=== PATIENT | female | born 1985 | race Caucasian/White ===

== ENCOUNTER 2018-04-14 23:30 | Emergency (ER) | payer MEDICAID ==
[~2018-04-14] VITALS: Ht 154.9 cm; Wt 90.7 kg
[2018-04-14 23:36] VITALS: BP 144/90
[2018-04-15] MEDS ORDERED: KETOROLAC 30 MG/ML VIAL ONE (02:21)
[2018-04-15] MEDS ORDERED: KETOROLAC 30 MG/ML VIAL IM ONE (02:25)
[2018-04-15 02:59] LABS: APPEARANCE,URINE CLEAR (CLEAR); BILIRUBIN,URINE NEGATIVE (NEGATIVE); BLOOD, URINE 3+ (NEGATIVE); COLOR,URINE YELLOW (YELLOW); LEUKOCYTE ESTERASE ,URINE TRACE (NEGATIVE); NITRITE, URINE NEGATIVE (NEGATIVE); UGLUCOSE NEGATIVE (NEGATIVE)
[2018-04-15 03:16] VITALS: BP 144/90
[2018-04-15 03:20] LABS: CALCIUM OXALATE CRYSTALS,UR 0-10 /HPF (None Seen); RBC,URINE 3-10 (FEW) /HPF (0-5); WBC,URINE 0-5 (RARE) /HPF (0-5)
== END 2018-04-15 03:15 | disposition home or self-care (01) ==
LOC: MED 23:30
DX: G44.209 Tension-type headache, unspecified, not intractable (principal); E11.9 Type 2 diabetes mellitus without complications; I10 Essential (primary) hypertension
CPT/HCPCS: 81001; 82948; 96372; 99283; J1885; 99284

== ENCOUNTER 2020-11-23 13:56 | Emergency (ER) | payer MEDICAID ==
[~2020-11-23] VITALS: Ht 154.9 cm; Wt 82.1 kg
[2020-11-23 14:15] VITALS: BP 104/58
--- NOTE | 2020-11-23 14:21 | NUR ---
35 Y/O FEMALE BIB SELF C/O CHEST PAIN WITH HEADACHE X 3 DAYS. PT DESCRIBES CHEST PAIN 6/10 THAT PULSING, NONRADIATING IN THE CENTER OF CHEST. PT TOOK TYLENOL WITH NO RELIEF. PT DENIES INJURY/TRAUMA/EATING SPICY FOODS. PT STATES SHE HAS BEEN NAUSEOUS WITH NO VOMITING. DENIES SOB/FEVER/CHILLS/DIARRHEA. PT IS A/O X4 WITH EVEN AND UNLABORED RESPIRATIONS. PT LAYING IN BED WITH BED IN LOWEST POSITION, BRAKES LOCKED, X1 SIDE RAIL UP. PT PLACED ON [employer]LEMENT[employer]IST PAYROLL. HX DENIES NKA
--- NOTE | 2020-11-23 14:27 | NUR ---
MARIA ESTHER DUNCAN AT BEDSIDE
--- NOTE | 2020-11-23 14:31 | NUR ---
RAD AT BEDSIDE
[2020-11-23] MEDS ORDERED: KETOROLAC 60 MG/2 ML VIAL IM ONE (14:35)
--- NOTE | 2020-11-23 14:38 | NUR ---
PT AMBULATED TO RESTROOM FOR URINE SAMPLE
--- NOTE | 2020-11-23 15:26 | NUR ---
PT RESTING IN BED WITH EVEN AND UNLABORED RESPIRATIONS. PT DENIES CHEST PAIN AT THIS TIME. WILL CONTINUE TO MONITOR
[2020-11-23] MEDS ORDERED: NAPR-54 PO (15:35)
[2020-11-23 15:56] VITALS: BP 104/58
== END 2020-11-23 15:56 | disposition home or self-care (01) ==
LOC: MED 13:56
DX: R51.9 Headache, unspecified (principal); R07.9 Chest pain, unspecified; I10 Essential (primary) hypertension; E11.9 Type 2 diabetes mellitus without complications
CPT/HCPCS: 71045; 81002; 81025; 93005; 96372; 99283; J1885

== ENCOUNTER 2020-11-29 15:14 | Emergency (ER) | payer MEDICAID ==
[~2020-11-29] VITALS: Ht 154.9 cm; Wt 81.6 kg
[~2020-11-29 15:14] MED LIST: NAPR-54 PO
[2020-11-29 15:16] VITALS: BP 144/77
--- NOTE | 2020-11-29 15:19 | NUR ---
LARON. HANDED ON URINE CUP.
--- NOTE | 2020-11-29 15:20 | NUR ---
BIB FAMILY C/O 05/26 [place] X 2 DAYS. LMP 11/13/20.PMH: DENIES. DENIES N/V/D; SKIN IS PINK/WARM/DRY; AAOX4 WITH EVEN AND STEADY GAIT; LUNGS CLEAR BL; HR EVEN AND REGULAR; PT DENIES ANY FEVER, CP, SOB, OR COUGH AT THIS TIME; PATIENT STATES PAIN OF 8/10 AT THIS TIME.
--- NOTE | 2020-11-29 16:18 | NUR ---
PT AMBULATED TO BED 7
--- NOTE | 2020-11-29 16:20 | NUR ---
MARIA ESTHER PADRON AT BEDSIDE
--- NOTE | 2020-11-29 16:22 | NUR ---
35 Y/O FEMALE C/O HEADACHE AND NECK PAIN X 2 DAYS. PT STATES PAIN IS 9/10 THAT IS PULSING/PRESSURE THAT RADIATES FROM HEADACHE TO NECK. PT STATES SHE IS NAUSEOUS WITH NO EPSIDOES OF EMESIS. PT STATES SHE TOOK TYLENOL THIS MORNING WITH NO RELIEF. PT STATES SHE IS SENSITIVE TO LIGHT. PT IS A/O X4 WITH EVEN AND UNLABORED RESPIRATIONS. PT IS LAYING IN BED WITH BED IN LOWEST POSITION, BRAKES LOCKED, X1 SIDERAIL UP. PMH: MARGARITAIES SHAHEEN
[2020-11-29] MEDS ORDERED: KETOROLAC 30 MG/ML VIAL IM ONE (16:25)
[2020-11-29] MEDS ORDERED: IBUP-1842 PO (16:36)
[2020-11-29 17:23] VITALS: BP 144/77
== END 2020-11-29 17:25 | disposition home or self-care (01) ==
LOC: MED 15:14
DX: G44.209 Tension-type headache, unspecified, not intractable (principal); M54.2 Cervicalgia; R11.0 Nausea; R51.9 Headache, unspecified; E11.9 Type 2 diabetes mellitus without complications; I10 Essential (primary) hypertension; Z79.899 Other long term (current) drug therapy
CPT/HCPCS: 81002; 81025; 96372; 99283; J1885

== ENCOUNTER 2020-12-08 16:20 | Emergency (ER) | payer MEDICAID ==
[~2020-12-08] VITALS: Ht 157.5 cm; Wt 77.1 kg
[~2020-12-08 16:20] MED LIST changes: +IBUP-1842 PO
[2020-12-08 16:26] VITALS: BP 132/74
--- NOTE | 2020-12-08 16:48 | NUR ---
35 YEAR OLD FEMALE COMPLAINS OF NONRADIATING CHEST PAIN X 1 WEEK. PT STATES PAIN IS CONTINOUS. PT DENIES SOB. PT STATES SOME NAUSEA, BUT NO VOMITTING OR DIARRHEA. PT AOX4, BREATHING EVEN AND UNLABORED, SKIN WARM AND DRY. BED IN LOWEST POSITION, LOCKED, BED RAIL UPX1. PMH - DENIES ALLERGIES - NKA
[2020-12-08 17:13] LABS: BASOPHILS % (AUTO) 0.5 % (0.0-2.0); EOSINOPHILS # (AUTO) 0.1 K/uL (0-0.4); EOSINOPHILS % (AUTO) 0.7 % (0.0-4.0); HEMATOCRIT 35.7 % (36-48); HEMOGLOBIN 11.6 g/dL (12.0-16.0); LYMPHOCYTES % (AUTO) 21.7 % (20.5-51.1); MEAN CORPUSCULAR HEMOGLOBIN 28 pg (27-31); MEAN CORPUSCULAR HGB CONC 33 g/dL (33-37); MEAN CORPUSCULAR VOLUME 85.5 fL (80-94); MONOCYTES # (AUTO) 0.7 K/uL (0.8-1.0); MONOCYTES % (AUTO) 7.9 % (1.7-9.3); NEUTROPHILS # (AUTO) 6.5 K/uL (1.8-7.7); NEUTROPHILS % (AUTO) 69.2 % (42.2-75.2); PLATELET COUNT (AUTO) 251 K/uL (140-450); RED BLOOD CELL COUNT(AUTO) 4.18 MIL/uL (4.20-5.40); WHITE BLOOD COUNT (AUTO) 9.4 K/uL (4.8-10.8)
[2020-12-08 17:40] LABS: ALBUMIN 3.8 g/dL (3.4-5.0); ANION GAP 10.7 (8-16); CARBON DIOXIDE 29.4 mmol/L (21-32); CREATININE 0.7 mg/dL (0.6-1.3); POTASSIUM 4.1 mmol/L (3.5-5.1); TOTAL BILIRUBIN 0.2 mg/dL (0.0-1.0)
--- NOTE | 2020-12-08 17:45 | NUR ---
pt alert and awake, breathing even and unlabored
[2020-12-08] MEDS ORDERED: ALUMINUM HYD/MAG/SIMETHICONE 30 ML UDC PO ONE (18:30)
[2020-12-08] MEDS ORDERED: KETOROLAC 30 MG/ML VIAL IM ONE (18:30)
[2020-12-08] MEDS ORDERED: FAMOTIDINE 20 MG TAB PO ONE (18:30)
[2020-12-08] MEDS ORDERED: ALUM355S59 PO (18:42)
[2020-12-08] MEDS ORDERED: FAMO-90 PO (18:42)
--- NOTE | 2020-12-08 19:00 | NUR ---
Patient discharged with v/s stable. Written and verbal after care instruction about GERD given and explained. Patient alert, oriented and verbalized understanding of instructions. Ambulatory with steady gait. All questions addressed prior to discharge. ID band removed. Patient advised to follow up with PMD. Rx of maalox, pepcid given. Patient educated on indication of medication including possible reaction and side effects. Opportunity to ask questions provided and answered.
[2020-12-08 19:05] VITALS: BP 132/74
== END 2020-12-08 19:05 | disposition home or self-care (01) ==
LOC: MED 16:20
DX: R07.9 Chest pain, unspecified (principal)
CPT/HCPCS: 36415; 71045; 76700; 80053; 81025; 83690; 84484; 85025; 93005; 96372; 99285; J1885

== ENCOUNTER 2021-01-12 23:48 | Emergency (ER) | payer MEDICAID ==
[~2021-01-12] VITALS: Ht 157.5 cm; Wt 81.6 kg
[~2021-01-12 23:48] MED LIST changes: +ALUM355S59 PO; +FAMO-90 PO
[2021-01-12 23:56] VITALS: BP 127/65
--- NOTE | 2021-01-13 00:10 | NUR ---
PT TAKEN TO BED 7
--- NOTE | 2021-01-13 00:13 | NUR ---
35 Y/O FEMALE CAME TO THE ED C/O CHEST PAIN. PT STATES 9/10 TIGHTNESS AND PRESSURE PAIN IN THE CHEST THAT DOES NOT RADIATE TO ANYWHERE ELSE. PT IS A&OX4, GCS15. DENIES ANY NAUSEA/VOMITTING. SKIN IS PINK/WARM/DRY; LUNGS CLEAR BL; HR EVEN AND REGULAR; PT DENIES ANY FEVER, CP, SOB, OR COUGH AT THIS TIME; VSS; PATIENT POSITIONED FOR COMFORT; HOB ELEVATED; BEDRAILS UP X2; BED DOWN. ER MD MADE AWARE OF PT STATUS. NKA PMH: DENIES
--- NOTE | 2021-01-13 00:13 | NUR ---
Dr. Meyer examining patient.
[2021-01-13] MEDS: KETOROLAC 30 MG/ML VIAL IVP ONE (00:26)
--- NOTE | 2021-01-13 00:26 | NUR ---
X-Ray at bedside.
[2021-01-13 00:37] LABS: BASOPHILS % (AUTO) 0.4 % (0.0-2.0); EOSINOPHILS # (AUTO) 0.1 K/uL (0-0.4); EOSINOPHILS % (AUTO) 1.3 % (0.0-4.0); HEMATOCRIT 34.9 % (36-48); HEMOGLOBIN 11.4 g/dL (12.0-16.0); LYMPHOCYTES # (AUTO) 2.8 K/uL (2.5-16.5); LYMPHOCYTES % (AUTO) 33.3 % (20.5-51.1); MEAN CORPUSCULAR HEMOGLOBIN 28 pg (27-31); MEAN CORPUSCULAR HGB CONC 33 g/dL (33-37); MEAN CORPUSCULAR VOLUME 85.9 fL (80-94); MONOCYTES # (AUTO) 0.7 K/uL (0.8-1.0); MONOCYTES % (AUTO) 8.7 % (1.7-9.3); NEUTROPHILS # (AUTO) 4.7 K/uL (1.8-7.7); NEUTROPHILS % (AUTO) 56.3 % (42.2-75.2); PLATELET COUNT (AUTO) 254 K/uL (140-450); RED BLOOD CELL COUNT(AUTO) 4.06 MIL/uL (4.20-5.40); RED CELL DISTRIBUTION WIDTH 14.5 % (11.6-13.7); WHITE BLOOD COUNT (AUTO) 8.4 K/uL (4.8-10.8)
--- NOTE | 2021-01-13 01:48 | NUR ---
Patient discharged with v/s stable. Written and verbal after care instructions given and explained. Patient verbalized understanding. Ambulatory with steady gait. All questions addressed prior to discharge. Advised to follow up with PMD.
[2021-01-13 01:49] VITALS: BP 127/65
[2021-01-13 02:00] LABS: ALBUMIN 3.9 g/dL (3.4-5.0); ANION GAP 10.1 (8-16); CARBON DIOXIDE 28.3 mmol/L (21-32); CREATININE 0.7 mg/dL (0.6-1.3); POTASSIUM 3.4 mmol/L (3.5-5.1); TOTAL BILIRUBIN 0.2 mg/dL (0.0-1.0)
== END 2021-01-13 01:48 | disposition home or self-care (01) ==
LOC: MED 23:48
DX: R07.9 Chest pain, unspecified (principal); I10 Essential (primary) hypertension
CPT/HCPCS: 36415; 71045; 80053; 84484; 84702; 85025; 93005; 96374; 99285; J1885

== ENCOUNTER 2021-03-19 15:19 | Emergency (ER) | payer MEDICAID ==
[~2021-03-19] VITALS: Ht 157.5 cm; Wt 83.5 kg
[2021-03-19 15:24] VITALS: BP 115/68
[2021-03-19 16:17] LABS: BASOPHILS % (AUTO) 0.6 % (0.0-2.0); EOSINOPHILS # (AUTO) 0.1 K/uL (0-0.4); EOSINOPHILS % (AUTO) 1.1 % (0.0-4.0); HEMATOCRIT 33.3 % (36-48); HEMOGLOBIN 11.1 g/dL (12.0-16.0); LYMPHOCYTES # (AUTO) 2.2 K/uL (2.5-16.5); LYMPHOCYTES % (AUTO) 27.9 % (20.5-51.1); MEAN CORPUSCULAR HEMOGLOBIN 29 pg (27-31); MEAN CORPUSCULAR HGB CONC 33 g/dL (33-37); MONOCYTES # (AUTO) 0.6 K/uL (0.8-1.0); MONOCYTES % (AUTO) 7.5 % (1.7-9.3); NEUTROPHILS # (AUTO) 4.9 K/uL (1.8-7.7); NEUTROPHILS % (AUTO) 62.9 % (42.2-75.2); PLATELET COUNT (AUTO) 242 K/uL (140-450); RED BLOOD CELL COUNT(AUTO) 3.83 MIL/uL (4.20-5.40); RED CELL DISTRIBUTION WIDTH 14.4 % (11.6-13.7); WHITE BLOOD COUNT (AUTO) 7.7 K/uL (4.8-10.8)
[2021-03-19] MEDS ORDERED: KETOROLAC 30 MG/ML VIAL IM ONE (16:20)
[2021-03-19 16:37] LABS: PROTHROMBIN TIME 9.9 secs (10.8-13.4)
[2021-03-19 16:38] LABS: ALBUMIN 3.9 g/dL (3.4-5.0); ANION GAP 10.2 (8-16); CARBON DIOXIDE 26.5 mmol/L (21-32); CREATININE 0.7 mg/dL (0.6-1.3); POTASSIUM 3.7 mmol/L (3.5-5.1); TOTAL BILIRUBIN 0.3 mg/dL (0.0-1.0)
[2021-03-19] MEDS ORDERED: NAPR-1704 PO (16:41)
[2021-03-19 16:55] LABS: D-DIMER < 100 ng/ml (0-400)
[2021-03-19 17:13] VITALS: BP 115/68
== END 2021-03-19 17:13 | disposition home or self-care (01) ==
LOC: MED 15:19
DX: R07.9 Chest pain, unspecified (principal); R11.0 Nausea; E11.9 Type 2 diabetes mellitus without complications; I10 Essential (primary) hypertension; Z79.899 Other long term (current) drug therapy
CPT/HCPCS: 36415; 71045; 80053; 81002; 81025; 83880; 84484; 85025; 85379; 85610; 85730; 93005; 96372; 99285; J1885

== ENCOUNTER 2021-04-12 18:03 | Emergency (ER) | payer MEDICAID ==
[~2021-04-12] VITALS: Ht 157.5 cm; Wt 83.0 kg
[~2021-04-12 18:03] MED LIST changes: +NAPR-1704 PO
[2021-04-12 18:20] VITALS: BP 121/75
--- NOTE | 2021-04-12 18:39 | NUR ---
PT TAKEN TO BED 4.
[2021-04-12] MEDS ORDERED: LIDOCAINE MPF 1% 10 MG/ML VIAL INJ ONE (18:50)
[2021-04-12] MEDS ORDERED: BACITRACIN OINT 500 UNITS/GM PKT TP ONE (18:50)
--- NOTE | 2021-04-12 18:50 | NUR ---
PT LAC BEING SOAKED IN WARM WATER WITH BETADINE, LAC TRAY SET UP AT BED SIDE AND PA NOTIFIED.
--- NOTE | 2021-04-12 19:09 | NUR ---
MARIA ESTHER DUNCAN WITH PT
[2021-04-12] MEDS ORDERED: IBUP-2213 PO (19:10)
--- NOTE | 2021-04-12 19:15 | NUR ---
RECEIVED PT IN BED 4. HAS BEEN SEEN BY AND RIGHT 2ND DIGIT SUTURED. BACITRACIN AND DRESSING APPLIED. PT STATES THAT SHE CUT HERSELF ON "BROKEN GLASS'
== END 2021-04-12 19:22 | disposition home or self-care (01) ==
LOC: MED 18:03
DX: S61.210A Laceration without foreign body of right index finger without damage to nail, initial encounter (principal); E11.9 Type 2 diabetes mellitus without complications; I10 Essential (primary) hypertension; Z79.899 Other long term (current) drug therapy; W26.8XXA Contact with other sharp object(s), not elsewhere classified, initial encounter; Y93.89 Activity, other specified; Y92.89 Other specified places as the place of occurrence of the external cause; Y99.8 Other external cause status
CPT/HCPCS: 12001; 99282; J2001

== ENCOUNTER 2021-07-17 08:31 | Emergency (ER) | payer MEDICAID ==
[~2021-07-17] VITALS: Ht 157.5 cm; Wt 83.5 kg
[~2021-07-17 08:31] MED LIST changes: +IBUP-2213 PO
[2021-07-17 08:55] VITALS: BP 143/89
[2021-07-17] MEDS: KETOROLAC 30 MG/ML VIAL IM ONE (09:39)
[2021-07-17 09:45] LABS: BASOPHILS % (AUTO) 0.7 % (0.0-2.0); EOSINOPHILS # (AUTO) 0.1 K/uL (0-0.4); EOSINOPHILS % (AUTO) 1.5 % (0.0-4.0); HEMATOCRIT 36.2 % (36-48); LYMPHOCYTES # (AUTO) 1.7 K/uL (2.5-16.5); LYMPHOCYTES % (AUTO) 29.3 % (20.5-51.1); MEAN CORPUSCULAR HEMOGLOBIN 29 pg (27-31); MEAN CORPUSCULAR HGB CONC 33 g/dL (33-37); MEAN CORPUSCULAR VOLUME 86.6 fL (80-94); MONOCYTES # (AUTO) 0.4 K/uL (0.8-1.0); MONOCYTES % (AUTO) 7.2 % (1.7-9.3); NEUTROPHILS # (AUTO) 3.5 K/uL (1.8-7.7); NEUTROPHILS % (AUTO) 61.3 % (42.2-75.2); PLATELET COUNT (AUTO) 229 K/uL (140-450); RED BLOOD CELL COUNT(AUTO) 4.19 MIL/uL (4.20-5.40); RED CELL DISTRIBUTION WIDTH 13.6 % (11.6-13.7); WHITE BLOOD COUNT (AUTO) 5.7 K/uL (4.8-10.8)
--- NOTE | 2021-07-17 09:56 | NUR ---
Note derrick in EDM - 07/17/21 at 0958 by [email or web address] 36/F BIB SELF WITH C/O LEFT LOWER QUADRANT ABDOMINAL PAIN SINCE YESTERDAY. PATIENT STATES PAIN CAME ON SUDDENLY AND HAS BEEN CONSISTENT AND SHARP. DENIES TAKING ANYTHING AT HOME FOR PAIN, SITE IS NON TENDER TO TOUCH. PATIENT DENIES N/V/D, URINARY SYMPTOMS, CP, SOB, FEVER OR CHILLS.
--- NOTE | 2021-07-17 10:00 | NUR ---
36/F BIB SELF WITH C/O LEFT LOWER QUADRANT ABDOMINAL PAIN SINCE YESTERDAY. PATIENT STATES PAIN CAME ON SUDDENLY AND HAS BEEN CONSISTENT AND SHARP. DENIES TAKING ANYTHING AT HOME FOR PAIN, SITE IS NON TENDER TO TOUCH. PATIENT DENIES N/V/D, URINARY SYMPTOMS, CP, SOB, FEVER OR CHILLS.
[2021-07-17 10:06] LABS: CARBON DIOXIDE 24.8 mmol/L (21-32); CREATININE 0.5 mg/dL (0.6-1.3); POTASSIUM 3.8 mmol/L (3.5-5.1)
--- NOTE | 2021-07-17 11:45 | NUR ---
ULTASOUND AT BEDSIDE
[2021-07-17] MEDS ORDERED: IBUP-2213 PO (12:58)
--- NOTE | 2021-07-17 13:00 | NUR ---
PATIENT APPEARS TO BE RESTING IN BED WITH EYES CLOSED, LIGHTS DIMMED FOR COMFORT. WILL CONTINUE TO MONITOR.
[2021-07-17 13:55] VITALS: BP 99/52
--- NOTE | 2021-07-17 14:07 | NUR ---
Patient discharged with v/s stable. Written and verbal after care instructions given and explained. Patient alert, oriented and verbalized understanding of instructions. Ambulatory with steady gait. All questions addressed prior to discharge. ID band removed. Patient advised to follow up with PMD. Rx of IBU given. Patient educated on indication of medication including possible reaction and side effects. Opportunity to ask questions provided and answered.
[2021-07-17 14:25] LABS: APPEARANCE,URINE SL CLOUDY (CLEAR); BILIRUBIN,URINE 1+ (NEGATIVE); BLOOD, URINE 3+ (NEGATIVE); COLOR,URINE ORANGE (YELLOW); LEUKOCYTE ESTERASE ,URINE NEGATIVE (NEGATIVE); NITRITE, URINE POSITIVE (NEGATIVE); UGLUCOSE NEGATIVE (NEGATIVE)
[2021-07-17 14:36] LABS: RBC,URINE >100 /HPF (0-5); WBC,URINE 0-5 /HPF (0-5)
== END 2021-07-17 14:07 | disposition home or self-care (01) ==
LOC: MED 08:31
DX: R10.9 Unspecified abdominal pain (principal); Z79.1 Long term (current) use of non-steroidal anti-inflammatories (NSAID); Z79.899 Other long term (current) drug therapy
CPT/HCPCS: 36415; 74018; 76770; 80048; 81001; 85025; 87086; 96372; 99285; J1885; Q0092; 81025

== ENCOUNTER 2021-07-23 13:57 | Emergency (ER) | payer MEDICAID ==
[~2021-07-23] VITALS: Ht 157.5 cm; Wt 82.6 kg
[2021-07-23 14:05] VITALS: BP 123/64
[2021-07-23] MEDS ORDERED: diphenhydrAMINE 50 MG/ML VIAL IVP ONE (14:15)
[2021-07-23] MEDS ORDERED: NACL 0.9% 1,000 ML IV ONE (14:15)
[2021-07-23] MEDS ORDERED: KETOROLAC 30 MG/ML VIAL IVP ONE (14:15)
[2021-07-23] MEDS ORDERED: METOCLOPRAMIDE 10 MG/2 ML INJ VIAL IVP ONE (14:15)
--- NOTE | 2021-07-23 15:40 | NUR ---
36/F PRESENTS TO ED WITH C/O HEADACHE SINCE LAST NIGHT. PATIENT STATES PAIN CAME ON WHILE AT REST, REPORTS TAKING TYLENOL WITH NO RELIEF. REPORTS 8/10 THROBBING PAIN THAT IS UNPROVOKED. STATES INTERMITTENT EPISODES OF NAUSEA, DENIES V/D, CP, SOB, FEVER OR CHILLS. PATIENT DENIES BLURRED VISION OR DIZZINESS, ALERT AND ORIENTED X4 ANSWERING QUESTIONS APPROPRIATELY.
[2021-07-23] MEDS ORDERED: ACET-9500 PO (16:03)
[2021-07-23 16:26] VITALS: BP 103/48
--- NOTE | 2021-07-23 16:26 | NUR ---
Patient discharged with v/s stable. Written and verbal after care instructions ABOUT MIGRAINE HEADACHE given and explained. Patient alert, oriented and verbalized understanding of instructions. Ambulatory with steady gait. All questions addressed prior to discharge. ID band removed. Patient advised to follow up with PMD. Rx of EXCEDRIN given. Opportunity to ask questions provided and answered.
--- NOTE | 2021-07-23 16:32 | NUR ---
Note michellenathaly in EDM - 07/23/21 at 1633 by [email or web address] Patient discharged with v/s stable. Written and verbal after care instructions ABOUT MIGRAINE HEADACHE given and explained. Patient alert, oriented and verbalized understanding of instructions. Ambulatory with steady gait. All questions addressed prior to discharge. ID band removed. Patient advised to follow up with PMD. Rx of EXCEDRIN given. Opportunity to ask questions provided and answered.
== END 2021-07-23 16:26 | disposition home or self-care (01) ==
LOC: MED 13:57
DX: G43.909 Migraine, unspecified, not intractable, without status migrainosus (principal); E11.9 Type 2 diabetes mellitus without complications; I10 Essential (primary) hypertension; Z79.899 Other long term (current) drug therapy
CPT/HCPCS: 81002; 81025; 96361; 96374; 96375; 99284; J1200; J1885; J2765; J7030

== ENCOUNTER 2021-08-18 13:11 | Emergency (ER) | payer MEDICAID ==
[~2021-08-18] VITALS: Ht 157.5 cm; Wt 82.1 kg
[~2021-08-18 13:11] MED LIST changes: +ACET-9500 PO
[2021-08-18 13:21] VITALS: BP 150/87
--- NOTE | 2021-08-18 13:50 | NUR ---
PT AMBULATED TO CHAIR A.
--- NOTE | 2021-08-18 14:15 | NUR ---
MARIA ESTHER DUNCAN WITH PT IN C FOR FURTHER EVALUATION.
--- NOTE | 2021-08-18 14:21 | NUR ---
36 Y/O FEMALE C/O ANXIETY X 2 DAYS. PT C/O NAUSEA AND PALPITATIONS. DENIES CP, SOB. PT DENIES ANY TRIGGERS/STRESS. NO MEDS TAKEN. DENIES PMH NKA
[2021-08-18] MEDS ORDERED: LORazepam 0.5 MG TAB PO ONE (14:40)
[2021-08-18] MEDS ORDERED: ATA25 PO (15:34)
== END 2021-08-18 15:37 | disposition home or self-care (01) ==
LOC: MED 13:11
DX: F41.9 Anxiety disorder, unspecified (principal); I10 Essential (primary) hypertension; E11.9 Type 2 diabetes mellitus without complications; Z79.899 Other long term (current) drug therapy; Z79.1 Long term (current) use of non-steroidal anti-inflammatories (NSAID)
CPT/HCPCS: 99283

== ENCOUNTER 2021-10-11 11:20 | Emergency (ER) | payer OTHER, MEDICAID ==
[~2021-10-11] VITALS: Ht 162.6 cm; Wt 82.1 kg
[~2021-10-11 11:20] MED LIST changes: +ATA25 PO
[2021-10-11 11:48] VITALS: BP 144/63
[2021-10-11] MEDS ORDERED: IBUPROFEN 600 MG TAB PO ONE (12:20)
[2021-10-11] MEDS ORDERED: KETOROLAC 30 MG/ML VIAL IM ONE (13:00)
[2021-10-11] MEDS ORDERED: NAPR-54 PO (14:21)
--- NOTE | 2021-10-11 15:10 | NUR ---
36 y/o female, c/o back pain for 8/10 post fall at work 1 hour. denies head injury, denies loc, denies fever/chills. denies n/v/d. skin is pink/warm/dry. a&o x4 with even and steady gait. lungs clear bl, heart rate even and regular. pt denies any fever, cp, sob, or cough at this time. denies anyone sick in [facility] [place] with same symptoms at this time. pt states pain is 10/10 at this time. vss. patient. Ermd made aware of pt. pmh: denies nka med: denies
[2021-10-11] MEDS ORDERED: KETOROLAC 30 MG/ML VIAL ONE (15:17)
--- NOTE | 2021-10-11 15:21 | NUR ---
Patient discharged with v/s stable. Written and verbal after care instructions given and explained. Patient alert, oriented and verbalized understanding of instructions. Ambulatory with steady gait. All questions addressed prior to discharge. ID band removed. Patient advised to follow up with PMD. Rx of naproxen (sent) given. Patient educated on indication of medication including possible reaction and side effects. Opportunity to ask questions provided and answered.
[2021-10-11 15:22] VITALS: BP 144/63
== END 2021-10-11 15:21 | disposition home or self-care (01) ==
LOC: MED 11:20
DX: S16.1XXA Strain of muscle, fascia and tendon at neck level, initial encounter (principal); S30.0XXA Contusion of lower back and pelvis, initial encounter; E11.9 Type 2 diabetes mellitus without complications; I10 Essential (primary) hypertension; Z79.899 Other long term (current) drug therapy; W17.89XA Other fall from one level to another, initial encounter; Y93.89 Activity, other specified; Y92.89 Other specified places as the place of occurrence of the external cause; Y99.8 Other external cause status
CPT/HCPCS: 72050; 72100; 96372; 99284; J1885

== ENCOUNTER 2022-06-12 01:50 | Emergency (ER) | payer MEDICAID ==
[~2022-06-12] VITALS: Ht 162.6 cm; Wt 88.9 kg
[~2022-06-12 01:50] MED LIST changes: +ACET-8001 PO; -ACET-9500 PO
[2022-06-12 01:59] VITALS: BP 102/66
[2022-06-12 02:05] VITALS: BP 102/66
--- NOTE | 2022-06-12 02:56 | NUR ---
Called first time- no show in lobby or outside.
--- NOTE | 2022-06-12 03:22 | NUR ---
PATIENT LEFT WITHOUT BEING SEEN BY DR. Andrade. NO FURTHER CARE PROVIDED FOR PATIENT.
== END 2022-06-12 02:56 | disposition left against medical advice (07) ==
LOC: MED 01:50
DX: M25.511 Pain in right shoulder (principal); Z53.21 Procedure and treatment not carried out due to patient leaving prior to being seen by health care provider

== ENCOUNTER 2022-06-15 05:10 | Emergency (ER) | payer MEDICAID ==
[~2022-06-15] VITALS: Ht 157.5 cm; Wt 83.9 kg
[2022-06-15 05:30] VITALS: BP 125/67
--- NOTE | 2022-06-15 05:33 | NUR ---
TO LOBBY A/W BED AMBULATORY
--- NOTE | 2022-06-15 06:06 | NUR ---
PT TO BED 11
[2022-06-15] MEDS ORDERED: LIDOCAINE 5% 1 EA PATCH TP SCH (06:35)
[2022-06-15] MEDS: KETOROLAC 15 MG/ML VIAL IM ONE ×2 (06:43→07:31)
--- NOTE | 2022-06-15 07:07 | NUR ---
Pt report given to Mckay YEAGER. Transfer of care at this time.
[2022-06-15] MEDS ORDERED: IBUP-2213 PO (08:00)
[2022-06-15 08:37] VITALS: BP 122/85
== END 2022-06-15 08:37 | disposition home or self-care (01) ==
LOC: MED 05:10
DX: M75.51 Bursitis of right shoulder (principal)
CPT/HCPCS: 73030; 81025; 96372; 99283; J1885

== ENCOUNTER 2022-06-28 21:24 | Emergency (ER) | payer MEDICAID ==
[~2022-06-28] VITALS: Ht 157.5 cm; Wt 89.8 kg
--- NOTE | 2022-06-28 21:30 | NUR ---
Maksim meza in [facility] - 06/28/22 at 2133 by KYLE PT AMB TO BED 06.
[2022-06-28 21:38] VITALS: BP 125/57
--- NOTE | 2022-06-28 21:38 | NUR ---
PT AMBUALTED TO BED #5
[2022-06-28] MEDS ORDERED: NACL 0.9% 1,000 ML IV ONE (21:50)
[2022-06-28] MEDS ORDERED: ONDANSETRON 4 MG/2 ML VIAL IVP ONE (21:50)
[2022-06-28] MEDS ORDERED: KETOROLAC 30 MG/ML VIAL IVP ONE (21:50)
--- NOTE | 2022-06-28 22:23 | NUR ---
37YR OLD FEMALE BIB SELF C/O GA DIZZINESS. DENIES V/D DENIES SOB OR CP. PULSING/ACHE LIKE PAIN 04/25. PT IS A&OX4 PALESTINIAN SPEAKING RESP EVEN AND UNLABORED. SKIN WARM AND DRY. HOB ELEVATED. BED AT LOWEST POSITION NKDA NO HX
[2022-06-28] MEDS ORDERED: diphenhydrAMINE 50 MG/ML VIAL IVP ONE (22:45)
--- NOTE | 2022-06-28 23:39 | NUR ---
PT RESTING RESP EVEN AND UNLABORED. PT IS PAIN LEVEL A 12/24. HOB ELEVATED. PENDING DISPO
[2022-06-29 00:42] VITALS: BP 103/47
--- NOTE | 2022-06-29 01:07 | NUR ---
The patient's care was reviewed and supervised by Val Lozada RN.
== END 2022-06-29 00:42 | disposition home or self-care (01) ==
LOC: MED 21:24
DX: R51.9 Headache, unspecified (principal); R11.0 Nausea; H53.8 Other visual disturbances
CPT/HCPCS: 81002; 81025; 96361; 96374; 96375; 99284; J1200; J1885; J2405; J7030

== ENCOUNTER 2022-12-27 01:15 | Emergency (ER) | payer MEDICAID ==
[~2022-12-27] VITALS: Ht 157.5 cm; Wt 92.5 kg
[2022-12-27 01:27] VITALS: BP 125/55
--- NOTE | 2022-12-27 02:45 | NUR ---
PATIENT LEFT WITHOUT BEING SEEN BY DR. Mcnamara. NO FURTHER CARE PROVIDED FOR PATIENT.
== END 2022-12-27 02:45 | disposition left against medical advice (07) ==
LOC: MED 01:15
DX: G43.909 Migraine, unspecified, not intractable, without status migrainosus (principal); Z53.21 Procedure and treatment not carried out due to patient leaving prior to being seen by health care provider
CPT/HCPCS: 99281

== ENCOUNTER 2023-01-01 12:23 | Emergency (ER) | payer MEDICAID ==
[~2023-01-01] VITALS: Ht 160 cm; Wt 104.3 kg
[2023-01-01 12:34] VITALS: BP 130/77
[2023-01-01] MEDS ORDERED: KETOROLAC 30 MG/ML VIAL IM ONE (13:10)
[2023-01-01] MEDS ORDERED: CAPS1ADH5 TP (13:46)
[2023-01-01] MEDS ORDERED: NAPR-1704 PO (13:46)
[2023-01-01 15:37] LABS: BILIRUBIN,URINE NEGATIVE (NEGATIVE); BLOOD, URINE NEGATIVE (NEGATIVE); COLOR,URINE YELLOW (YELLOW); LEUKOCYTE ESTERASE ,URINE 1+ (NEGATIVE); NITRITE, URINE NEGATIVE (NEGATIVE); UGLUCOSE NEGATIVE (NEGATIVE)
[2023-01-01 15:40] LABS: APPEARANCE,URINE HAZY (CLEAR)
[2023-01-01 15:51] LABS: RBC,URINE NONE SEEN /HPF (0-5); WBC,URINE 0-5 /HPF (0-5)
== END 2023-01-01 13:58 | disposition home or self-care (01) ==
LOC: MED 12:23
DX: M51.34 Other intervertebral disc degeneration, thoracic region (principal); I10 Essential (primary) hypertension; E11.9 Type 2 diabetes mellitus without complications; Z79.4 Long term (current) use of insulin; Z79.899 Other long term (current) drug therapy
CPT/HCPCS: 72072; 81001; 81025; 87086; 99284